=== PATIENT | female | born 2000 | race Caucasian/White ===

== ENCOUNTER 2024-02-09 11:40 | Emergency (ER) | payer BC, SELFPAY ==
[2024-02-09 11:42] VITALS: BP 158/57
--- NOTE | 2024-02-09 11:42 | ED.GENMED ---
ED Provider Triage
<Dayana Cardoza PA-C - Last Filed: 02/09/24 11:45>
-
Patient seen by provider in Triage?: Seen in Triage
Attestation: A medical screening examination has been initiated by a qualified medical provider. Based on the assessment performed at this time, it has been determined that an emergent medical condition may exist and the patient has been informed
that further medical evaluation and possible additional diagnostic testing may be needed.
HPI: 23yo RHD female here with R ring finger pain after jamming her finger catching a football yesterday. Arrives with a finger splint in place. No obvious deformity.
GENERAL: Alert , in no apparent distress
EYE: No visual abnormalities.
NECK: Trachea midline
ENT: No visible abnormalities.
LUNGS: No acute respiratory distress
NEUROLOGICAL: Alert and oriented
SKIN: Skin intact. No visible changes.
MUSCULOSKELETAL: Moving extremities normally
PSYCH: Normal and appropriate interaction.
This is a medical evaluation conducted in person to initiate diagnostic evaluation and provide initial therapeutics. Please see further documentation by the treating clinician.
X-rays ordered.
History of Present Illness
<Dayana Cardoza PA-C - Last Filed: 02/09/24 11:45>
General
Chief Complaint: Musculo-Skeletal Complaint
Time Seen by Provider: 02/09/24 12:22
<Amarjit Owen PA-C - Last Filed: 02/09/24 12:36>
General
Source: patient
History of Present Illness
History of Present Illness:
23-year-old [id number] female presents complaining of right ring finger pain starting last night. She jammed her finger catching a football. Sent in by school for evaluation. She notes increased swelling and stiffness since then
Phy Exam
<Amarjit Owen PA-C - Last Filed: 02/09/24 12:36>
Physical Exam
Physical Exam:
General: Well-appearing female no acute distress musculoskeletal exam: Right ring finger swollen tender over the DIP and PIP joints.
No deformity. Able to flex and extend all joints.
Neurologic: Good sensation right ring finger
Vascular: Brisk cap refill right ring finger
Course
<Dayana Cardoza PA-C - Last Filed: 02/09/24 11:45>
Orders/Labs/Results
Orders:
Orders
02/09/24 11:43
CR Hand - Right Min 3 Views Urgent
Comment:
Reason For Exam: R ring finger injury
Vital Signs
Initial and Last Documented VS:
Initial Vital Signs
Temp Pulse Resp BP Pulse Ox
98.1 F 98 18 158/57 97
02/09/24 11:42 02/09/24 11:42 02/09/24 11:42 02/09/24 11:42 02/09/24 11:42
Last Documented Vital Signs
Temp Pulse Resp BP Pulse Ox
98.1 F 98 18 158/57 97
02/09/24 11:42 02/09/24 11:42 02/09/24 11:42 02/09/24 11:42 02/09/24 11:42
<Amarjit Owen PA-C - Last Filed: 02/09/24 12:36>
Orders/Labs/Results
Orders:
Orders
02/09/24 11:43
CR Hand - Right Min 3 Views Urgent
Comment:
Reason For Exam: R ring finger injury
Vital Signs
Initial and Last Documented VS:
Initial Vital Signs
Temp Pulse Resp BP Pulse Ox
98.1 F 98 18 158/57 97
02/09/24 11:42 02/09/24 11:42 02/09/24 11:42 02/09/24 11:42 02/09/24 11:42
Last Documented Vital Signs
Temp Pulse Resp BP Pulse Ox
98.1 F 98 18 158/57 97
02/09/24 11:42 02/09/24 11:42 02/09/24 11:42 02/09/24 11:42 02/09/24 11:42
<Amarjit Owen PA-C - Last Filed: 02/09/24 12:36>
MDM/Problems Addressed
Differential Diagnosis Includes:
Right ring finger pain after jamming her finger. Question sprain versus fracture versus dislocation
I personally visualized x-rays of the right ring finger which are negative for acute bony abnormality. Clinically do not fact tendon injury. Suspect sprain. Recommended rest and ibuprofen. Stable for discharge
<Amarjit Owen PA-C - Last Filed: 02/09/24 12:36>
*Critical Care Note
Total Time (30-74mins, 75-104mins- exclusive of procedures): Not Applicable
ED Attending Note
<Dayana Cardoza PA-C - Last Filed: 02/09/24 11:45>
-
Portions of this chart may have been created with voice recognition software.� Occasional wrong word or��sound alike� substitutions may have occurred due to the inherent limitations of voice recognition software.
Discharge Plan
Departure
Patient Disposition: Home (Routine Discharge)
Date of Disposition: 02/09/24
Time of Disposition: 12:35
Patient with high blood pressure during this ER visit?: No
Discharge Problem:
Finger sprain
Instructions: Muscle and Bone Pain (DC)
Stand Alone Forms: Back to School
Activity Restrictions/Additional Instructions:
Use splint as needed. Remove your finger from the splint to start getting motion back of your finger. You may use ibuprofen for pain. Return if worse otherwise
Interventions
Interventions:
*Risk Screen - Suicide Last Done: 02/09/24 11:42
*General Assessment Last Done: 02/09/24 11:42
*Neglect/Abuse Screening Last Done: 02/09/24 11:42
Discharge Date and Time
Print Language: SLOVENIAN
== END 2024-02-09 12:39 | disposition home or self-care (01) ==
LOC: EMR 11:40
PROVIDERS: EMERGENCY PHYSICIAN Student in an Organized Health Care Education/Training Program
DX: S63.614A Unspecified sprain of right ring finger, initial encounter (principal); W21.01XA Struck by football, initial encounter
CPT/HCPCS: 99283; 73130